=== PATIENT | female | born 1950 | race Caucasian/White ===

== ENCOUNTER → 2016-11-06 | Outpatient (CLI) | payer BC, OTHER ==
[~2016-11-06] VITALS: Ht 160 cm; Wt 69.6 kg
[~2016-11-06] MED LIST: ASPIRIN 32325 MG/TAB PO; CALCIUM CARBON650 M2; CALCIUM CARBON650 M2 PO; COLACE 100100 MG/CAP PO; GLUCOPHAGE500 MG/TAB PO; LEXAPRO 10MG10 MG PO; LIPITOR 40MG TA40 MG PO; MELATONIN5 M1 SL; MULTI VITAMINS1 TAB PO; NIASPAN1000 MG PO; PRINIVIL40 MG PO; THE MEDICINE S200 M2 PO; TRILIPIX 135MG PO
[2016-11-06 09:44] VITALS: BP 100/75; PULSE 58
[2016-11-06 10:59] VITALS: BP 113/72; PULSE 58
== END ==
LOC: COL.RAD 09:21
DX: M48.06 Spinal stenosis, lumbar region (principal); M79.604 Pain in right leg
CPT/HCPCS: J3301